=== PATIENT | female | born 1965 | race Caucasian/White ===

== ENCOUNTER → 2023-09-28 08:35 | Outpatient (REF) | payer BC, SELFPAY ==
[2023-09-28 10:03] LABS: % Basophils 1.1 % (0-2); % Eosinophils 2.4 % (0-6); % Immature Granulocytes 0.2 % (0-0.5); % Lymphocytes 31.8 % (20.5-51.1); % Monocytes 6.1 % (1.7-9.3); % Neutrophils 58.4 % (42.2-75.2); Absolute Basophils 0.1 10^3/uL (0-0.2); Absolute Eosinophils 0.2 10^3/uL (0-0.7); Absolute Lymphocytes 2.1 10^3/uL (1.2-3.4); Absolute Monocytes 0.4 10^3/uL (0.1-0.6); Absolute Neutrophils 3.9 10^3/uL (1.4-6.5); Hemoglobin 13.9 g/dL (12.0-16.0); Mean Corp Hgb Conc. 33.9 g/dL (33.0-37.0); Mean Corpuscular Hgb 31.7 pg (27.0-31.0); Mean Corpuscular Volume 93.4 fL (81.0-99.0); Nucleated Red Blood Cells % 0 %; Platelet Count 303 10^3/uL (130-400); Red Blood Cell Count 4.39 10^6/uL (4.20-5.40); Red Cell Dist. Width 12.9 % (11.5-14.5); White Blood Cell Count 6.6 10^3/uL (4.8-10.8)
[2023-09-28 11:33] LABS: TSH 2.18 uIU/ml (0.47-4.68)
[2023-09-28 11:38] LABS: ALT (SGPT) 16 U/L (0-35); AST (SGOT) 28 U/L (14-36); Alkaline Phosphatase 60 U/L (38-126); Blood Urea Nitrogen 19 mg/dl (7-17); Calcium 9.6 mg/dl (8.4-10.2); Carbon Dioxide 28 mmol/L (22-30); Chloride 100 mmol/L (98-107); Glucose 87 mg/dl (70-99); HDL Cholesterol 66 mg/dl; LDL Cholesterol, Calculated 126 mg/dl; Potassium 4.3 mmol/L (3.5-5.1); Sodium 137 mmol/L (135-145); Total Cholesterol 224 mg/dl (50-199); Total Protein 7.1 g/dl (6.3-8.2); Triglyceride 161 mg/dl (10-149); Very Low Density Lipoprotein 32 mg/dl (0-30); eGFR > 60.00
== END ==
LOC: REG 08:35
PROVIDERS: ATTENDING PHYSICIAN Physician Assistant Surgical
DX: Z13.9 Encounter for screening, unspecified (principal)
CPT/HCPCS: 36415; 80053; 80061; 84443; 85025

== ENCOUNTER 2024-04-14 18:20 | Emergency (ER) | payer BC, SELFPAY ==
[2024-04-14 18:21] VITALS: BP 125/50
--- NOTE | 2024-04-14 20:20 | ED.GENMED ---
History of Present Illness
General
Chief Complaint: Musculo-Skeletal Complaint
Source: patient
Time Seen by Provider: 04/14/24 19:15
Nursing documentation reviewed up to this point in time: agreed with
History of Present Illness
History of Present Illness:
58-year-old female presents to the ER with right wrist injury and right knee injury after tripping over her dog. She landed on her wrist. She also twisted her right knee. She denies hitting her head she is not blood thinners she is right-hand
dominant.
Review of Systems
Review of Systems
Allergies reviewed?: Yes
All Other Systems: ROS reviewed and negative except as documented in HPI and ROS
Constitutional: Reports no symptoms; Denies fever
Respiratory: Reports no symptoms
Cardiac: Reports no symptoms
ABD/GI: Reports no symptoms
Musculoskeletal: Reports other (right wrist /right knee pain )
Skin: Reports no symptoms
Neurological: Reports no symptoms
Psychiatric: Reports no symptoms
Phy Exam
General Physical Exam
General Presentation: no apparent distress
General age: appears stated age
General Skin: warm and dry
General Habitus: normal
General Mental: alert
Neurological Exam
Neurological Exam: alert and oriented x3
Musculoskeletal Exam
Musculoskeletal Exam: other (Right upper extremity strong pulses tenderness and swelling throughout the wrist normal distal sensation, right knee with obvious swelling pain with any range of motion)
Skin Exam
Skin Exam: normal color and warm/dry
Psychiatric Exam
Psychiatric Exam: normal mood/affect
Course
Orders/Labs/Results
Orders:
Orders
04/14/24 18:26
CR Knee- Right 4 Or More View* Urgent
Comment:
Reason For Exam: fall, injury
CR Wrist - Right Min 3 Views Urgent
Comment:
Reason For Exam: fall, injury
04/14/24 19:45
CT Lower Ext W/o Iv Cont Rt Urgent
Comment:
Reason For Exam: knee pain
04/14/24 19:56
Sling Right-Treatment ONCE
Splints/Slings/Crut- Treatment ONCE
Location: Right
Type of Splint: Volar
04/14/24 20:26
Knee Immobilizer Right-Treatme ONCE
Vital Signs
Initial and Last Documented VS:
Initial Vital Signs
Temp Pulse Resp BP Pulse Ox
98.2 F 75 14 125/50 100
04/14/24 18:21 04/14/24 18:21 04/14/24 18:21 04/14/24 18:21 04/14/24 18:21
Last Documented Vital Signs
Temp Pulse Resp BP Pulse Ox
98.2 F 71 16 128/67 98
04/14/24 18:21 04/14/24 21:09 04/14/24 21:09 04/14/24 21:09 04/14/24 21:09
Procedures
Splint Check
Splint checked by provider?: Yes
Circulation/Movement/Sensation post splint application: brisk cap refill and full sensation
MDM/Problems Addressed
Differential Diagnosis Includes:
Not limited to wrist sprain strain versus fracture, knee sprain strain versus fracture
MDM/Problems Addressed:
Patient is documented tripped and fell sustaining a fracture to the right wrist. I did speak with Ortho and orthopedics Dr. Anguiano was able to visualize image on [place] text. Will place in a splint he will see patient tomorrow patient will most
likely need surgery. In addition to wrist injury patient does have a tibial plateau fracture of the knee. He does request that a CAT scan be done however patient may go home but nonweightbearing with immobilizer.
Pt has a wheelchair at home. Will DC patient after CAT scan is done. Dr. Anguiano will see patient at 8 AM tomorrow in his office.
Patient right wrist comfortable in splint immobilizer to right knee
*Radiology
Radiology exam reviewed: radiology read reviewed
*Pulse Oximetry
Patient hypoxic: no
*Critical Care Note
Total Time (30-74mins, 75-104mins- exclusive of procedures): Not Applicable
Patient Management
Discussion with other providers: Technical Support Analyst (ortho DR anguiano )
ED Attending Note
-
Portions of this chart may have been created with voice recognition software.� Occasional wrong word or��sound alike� substitutions may have occurred due to the inherent limitations of voice recognition software.
Discharge Plan
Departure
Patient Disposition: Home (Routine Discharge)
Patient with high blood pressure during this ER visit?: No
Condition: Fair
Covid-19: Not Applicable
Discharge Problem:
right wrist fracture, Closed fracture of right tibial plateau
Instructions: Knee Immobilizer (DC), Using Cold for Pain, Lower Leg Fracture ED, Wrist Fracture
Prescriptions:
No Action
multivitamin Tablet
1 tab PO DAILY
acetaminophen [Tylenol Extra Strength] 500 mg Tablet
1,000 mg PO Q6H PRN (Reason: pain)
Vitamin D3
1 dose PO DAILY
Referrals:
NONE,* [Family Provider] -
Raul Anguiano MD [Active] -
Activity Restrictions/Additional Instructions:
As discussed wear splint and knee immobilizer until seen and eval by orthopedics. Do not wet splint. Do not bear weight on your right knee .Use wheelchair.
Keep wrist elevated and knee elevated as much as possible
ice the affected areas.
Ibuprofen every [address] Anguiano will see you tomorrow at 8 AM at his [place] office.
Return if any worsening of symptoms of increased pain cold numb or blue fingers or toes.
Interventions
Interventions:
*Risk Screen - Suicide Last Done: 04/14/24 18:21
*General Assessment Last Done: 04/14/24 18:21
*Neglect/Abuse Screening Last Done: 04/14/24 18:21
ED- Fall Risk Assessment Last Done: 04/14/24 21:10
*ED COVID-19 Vaccine History Last Done: 04/14/24 19:12
*Nursing Disposition Last Done: 04/14/24 21:10
ED-Musculoskeletal Assessment Last Done: 04/14/24 19:13
Discharge Date and Time
Discharge Date/Time: 04/14/24 21:11
Print Language: PALAUAN
[2024-04-14 21:09] VITALS: BP 128/67
== END 2024-04-14 21:11 | disposition home or self-care (01) ==
LOC: EMR 18:20
PROVIDERS: EMERGENCY PHYSICIAN Emergency Medicine
DX: S52.571A Other intraarticular fracture of lower end of right radius, initial encounter for closed fracture (principal); S52.611A Displaced fracture of right ulna styloid process, initial encounter for closed fracture; S82.141A Displaced bicondylar fracture of right tibia, initial encounter for closed fracture; W01.0XXA Fall on same level from slipping, tripping and stumbling without subsequent striking against object, initial encounter
CPT/HCPCS: 29125; 29505; 99284; 73110; 73564; 73700

== ENCOUNTER 2024-04-16 05:59 | Inpatient (IN) | payer BC, SELFPAY ==
[2024-04-16] VITALS (8 sets, daily range): BP systolic 107–120; BP diastolic 56–68; BMI 17.5
[2024-04-16] MEDS: TYLENOL 1000 MG PO (06:28)
[2024-04-16] MEDS: CELEBREX 200 MG PO (06:28)
[2024-04-16] MEDS: NORMOSOL-R/PLASMALYTE-A 1000 IV (06:40)
[2024-04-16] MEDS: DILAUDID 0.25 MG IV (11:17)
== END 2024-04-16 12:16 | disposition home or self-care (01) | DRG 493 ==
LOC: AMOS 05:59
PROVIDERS: ADMITTING PHYSICIAN Orthopaedic Surgery
PROC: 0QSG04Z Reposition Right Tibia with Internal Fixation Device, Open Approach (ICD-10-PCS; 2024-04-16)
PROC: 0PSH04Z Reposition Right Radius with Internal Fixation Device, Open Approach (ICD-10-PCS; 2024-04-16)
DX: S82.141A Displaced bicondylar fracture of right tibia, initial encounter for closed fracture (principal); S52.571A Other intraarticular fracture of lower end of right radius, initial encounter for closed fracture; W01.0XXA Fall on same level from slipping, tripping and stumbling without subsequent striking against object, initial encounter
CPT/HCPCS: 73100; 73560; 76000; 93005; C1713

== ENCOUNTER → 2024-06-24 09:35 | Outpatient (REF) | payer BC, SELFPAY ==
[2024-06-24 10:39] LABS: % Basophils 1.1 % (0-2); % Eosinophils 3.4 % (0-6); % Immature Granulocytes 0.3 % (0-0.5); % Lymphocytes 28.9 % (20.5-51.1); % Monocytes 6.1 % (1.7-9.3); % Neutrophils 60.2 % (42.2-75.2); Absolute Basophils 0.1 10^3/uL (0-0.2); Absolute Eosinophils 0.3 10^3/uL (0-0.7); Absolute Lymphocytes 2.1 10^3/uL (1.2-3.4); Absolute Monocytes 0.5 10^3/uL (0.1-0.6); Absolute Neutrophils 4.5 10^3/uL (1.4-6.5); Hematocrit 43.1 % (37.0-47.0); Mean Corp Hgb Conc. 32.5 g/dL (33.0-37.0); Mean Corpuscular Hgb 31.5 pg (27.0-31.0); Mean Corpuscular Volume 97.1 fL (81.0-99.0); Nucleated Red Blood Cells % 0 %; Platelet Count 338 10^3/uL (130-400); Red Blood Cell Count 4.44 10^6/uL (4.20-5.40); Red Cell Dist. Width 12.8 % (11.5-14.5); White Blood Cell Count 7.4 10^3/uL (4.8-10.8)
[2024-06-24 11:06] LABS: ALT (SGPT) 19 U/L (0-35); AST (SGOT) 30 U/L (14-36); Albumin 4.8 g/dl (3.5-5.0); Alkaline Phosphatase 74 U/L (38-126); Blood Urea Nitrogen 16 mg/dl (7-17); Calcium 10.2 mg/dl (8.4-10.2); Carbon Dioxide 31 mmol/L (22-30); Chloride 100 mmol/L (98-107); Glucose 92 mg/dl (70-99); HDL Cholesterol 68 mg/dl; LDL Cholesterol, Calculated 108 mg/dl; Potassium 4.4 mmol/L (3.5-5.1); Sodium 142 mmol/L (135-145); Total Bilirubin 0.8 mg/dl (0.2-1.3); Total Cholesterol 224 mg/dl (50-199); Total Protein 7.6 g/dl (6.3-8.2); Triglyceride 241 mg/dl (10-149); Very Low Density Lipoprotein 48 mg/dl (0-30); eGFR > 60.00
[2024-06-24 11:17] LABS: Glycohemoglobin (HgbA1c) 5.3 % (4.0-5.6)
[2024-06-24 11:21] LABS: Vitamin D, 25-OH*** 63.6 ng/mL (30-80)
[2024-06-25 17:32] LABS: Lipoprotein a (Lp a) 42 mg/dL (<=29)
== END ==
LOC: REG 09:35
PROVIDERS: ATTENDING PHYSICIAN Internal Medicine
DX: E78.5 Hyperlipidemia, unspecified (principal); Z91.89 Other specified personal risk factors, not elsewhere classified
CPT/HCPCS: 36415; 80053; 80061; 82306; 83036; 83695; 84443; 85025

== ENCOUNTER → 2024-07-02 15:34 | Outpatient (REF) | payer SELFPAY | LOC: RAD 15:34 | PROVIDERS: ATTENDING PHYSICIAN Internal Medicine | DX: E78.5 Hyperlipidemia, unspecified (principal) | CPT/HCPCS: 75571 ==

== ENCOUNTER → 2024-08-01 08:58 | Outpatient (REF) | payer BC, SELFPAY | LOC: HWWDC 08:58 | PROVIDERS: ATTENDING PHYSICIAN Internal Medicine | DX: Z12.31 Encounter for screening mammogram for malignant neoplasm of breast (principal) | CPT/HCPCS: 77063; 77067 ==

== ENCOUNTER → 2024-09-23 08:45 | Outpatient (REF) | payer BC, SELFPAY ==
[2024-09-23 10:08] LABS: ALT (SGPT) 25 U/L (0-35); AST (SGOT) 31 U/L (14-36); Alkaline Phosphatase 82 U/L (38-126); Blood Urea Nitrogen 19 mg/dl (7-17); Calcium 10.2 mg/dl (8.4-10.2); Carbon Dioxide 26 mmol/L (22-30); Chloride 100 mmol/L (98-107); Glucose 86 mg/dl (70-99); Phosphorus 4.1 mg/dl (2.5-4.5); Potassium 4.2 mmol/L (3.5-5.1); Sodium 137 mmol/L (135-145); Total Bilirubin 1.4 mg/dl (0.2-1.3); Total Protein 7.4 g/dl (6.3-8.2); eGFR > 60.00
[2024-09-23 10:10] LABS: Vitamin D, 25-OH*** 75.3 ng/mL (30-80)
[2024-09-23 10:13] LABS: IgA 167 mg/dl (70-400)
[2024-09-23 10:23] LABS: TSH 1.73 uIU/ml (0.47-4.68)
[2024-09-24 12:34] LABS: Intact PTH 17.8 pg/ml (13.6-85.8)
[2024-09-25 03:00] LABS: tTG IgA Antibody <1.02 FLU (0.00-4.99)
[2024-09-25 06:27] LABS: Endomysial IgA Antibody Titer <1:10 (<1:10)
[2024-09-25 10:17] LABS: Alpha 1 Globulin 0.19 g/dL (0.19-0.46); Alpha 2 Globulin 0.66 g/dL (0.48-1.05); SPEP IFE Reflex Not Done; Total Protein-Electrophoresis 7.1 g/dL (6.3-8.2)
== END ==
LOC: REG 08:45
PROVIDERS: ATTENDING PHYSICIAN Internal Medicine; FAMILY PHYSICIAN Internal Medicine
DX: M81.0 Age-related osteoporosis without current pathological fracture (principal); Z51.81 Encounter for therapeutic drug level monitoring; Z71.3 Dietary counseling and surveillance; Z71.82 Exercise counseling
CPT/HCPCS: 36415; 80053; 82306; 82784; 83516; 83970; 84100; 84155; 84165; 84443; 86231

== ENCOUNTER → 2024-09-24 12:53 | Outpatient (REF) | payer BC, SELFPAY ==
[2024-09-24 14:14] LABS: 24 Hour Urine Total Volume 1750 ml
[2024-09-24 14:34] LABS: 24 Hour Urine Calcium 222.2 mg/day; Urine Calcium 12.7 mg/dl
== END ==
LOC: REG 12:53
PROVIDERS: ATTENDING PHYSICIAN Internal Medicine; FAMILY PHYSICIAN Internal Medicine
DX: M81.0 Age-related osteoporosis without current pathological fracture (principal); Z51.81 Encounter for therapeutic drug level monitoring; Z71.3 Dietary counseling and surveillance; Z71.82 Exercise counseling
CPT/HCPCS: 81050; 82340; 82530

== ENCOUNTER → 2025-04-04 12:46 | Outpatient (REF) | payer BC, SELFPAY ==
[2025-04-04 14:04] LABS: ALT (SGPT) 23 U/L (0-35); AST (SGOT) 28 U/L (14-36); Albumin 4.8 g/dl (3.5-5.0); Alkaline Phosphatase 80 U/L (38-126); Blood Urea Nitrogen 19 mg/dl (7-17); Calcium 10.2 mg/dl (8.4-10.2); Carbon Dioxide 31 mmol/L (22-30); Chloride 101 mmol/L (98-107); Glucose 88 mg/dl (70-99); Potassium 4.1 mmol/L (3.5-5.1); Sodium 138 mmol/L (135-145); Total Protein 7.4 g/dl (6.3-8.2); eGFR > 60.00
[2025-04-04 14:20] LABS: Vitamin D, 25-OH*** 62.3 ng/mL (30-80)
== END ==
LOC: REG 12:46
PROVIDERS: ATTENDING PHYSICIAN Internal Medicine; FAMILY PHYSICIAN Internal Medicine
DX: M81.0 Age-related osteoporosis without current pathological fracture (principal); Z51.81 Encounter for therapeutic drug level monitoring
CPT/HCPCS: 36415; 80053; 82306